=== PATIENT | male | born 1980 | race American Indian/Alaskan Native ===

== ENCOUNTER 2021-05-02 11:42 | Emergency (ER) | payer BC ==
[2021-05-02 11:54] VITALS: BP 121/76
--- NOTE | 2021-05-02 12:59 | Emergency Department Report ---
ED General Adult HPI - General Chief complaint: Urogenital-Male Stated complaint: CHECK UP Time Seen by Provider: 05/02/21 12:57 Source: patient Mode of arrival: Ambulatory Limitations: No Limitations - History of Present Illness Initial comments: 40-year-old male patient presents emergency department with complaints of suprapubic pain for 4 days. No recent fall, trauma, or injury. Pain is sometimes worse with urination. No history of prostate issues. No known STD exposure. No medications prior to arrival. Denies fever, nausea, vomiting, diarrhea, constipation, testicular pain/swelling, penile discharge, hematuria. Denies all other complaints at this time. - Related Data Allergies Allergy/AdvReac Type Severity Reaction Status Date / Time No Known Allergies Allergy Verified 05/02/21 11:54 ED Review of Systems ROS: Stated complaint: CHECK UP Other details as noted in HPI Other: GENERAL: Negative for fever. CARDIOVASCULAR: Negative for chest pain. PULMONARY: Negative for shortness of breath. GASTROINTESTINAL: Positive for pelvic pain. MUSCULOSKELETAL: Negative for back pain. NEUROLOGICAL: Negative for headache. INTEGUMENTARY: Negative for rash. ED Physical Exam - General Limitations: No Limitations - Other Other exam information: General: Awake, appropriately interactive, no acute distress. Neck: Supple. Full range of motion intact. Cardiovascular: Normal peripheral perfusion. Pulmonary: No respiratory distress. Patient is speaking normally without use of accessory muscles. Abdomen: Soft, non-distended. Suprapubic tenderness without guarding, rigidity, or rebound. Pelvic: Male chair trimmer (Jagjit, director of cardiopulmonary services) present. Normal external inspection. No evidence of inguinal hernia. No scrotal edema or tenderness. No testicular asymmetry. No blood or discharge at the urethral meatus. Uncircumcised. No rashes or lesions. No lymphadenopathy. Skin: No apparent rashes or lesions. Neurological: No facial asymmetry. Speech is clear. Follows commands. Patient is alert and oriented. Musculoskeletal: Moves all four extremities spontaneously with normal range of motion. Psych: Cooperative. Appropriate mood and affect. ED Course Vital Signs 05/02/21 05/02/21 11:53 14:40 Temperature 98.7 F Pulse Rate 65 88 Respiratory 16 16 Rate Blood Pressure 121/76 [Left] O2 Sat by Pulse 98 99 Oximetry ED Medical Decision Making - Medical Decision Making Differential diagnosis including but not limited to: hernia, cystitis, sexually transmitted infection, prostatitis, testicular torsion On reevaluation, patient remains stable. Vital signs are within normal limits. He does not appear to be in distress. He is urinating and tolerating PO without difficulty. Testicular exam without evidence of swelling, erythema, asymmetry, or tenderness. No evidence of hernia on examination. Urinalysis is unremarkable. Patient has no concerns for STD exposure. Etiology of patient's pelvic pain remains uncertain however there is no clinical indication for further diagnostic work-up on an emergent basis at this time. Patient will be discharged home with referral to local primary care provider for close outpatient follow-up. Patient expressed understanding and is agreeable to plan of care. Strict return precautions provided. Repeat exam is unremarkable and benign. History, exam, diagnostic testing, and current condition do not suggest worrisome pathology to warrant further testing, continued ED treatment, admission, or surgical evaluation at this point. Given the low probability of a significant medical illness, it would be more likely to result in harm than benefit to perform further testing at this stage. Discussed findings, presumptive diagnosis, need for follow-up and specific signs/symptoms that should prompt immediate return to the emergency department. Instructions were explained in detail to the patient in addition to giving written discharge information. Patient expressed understanding and was given the opportunity to ask questions, all of which were satisfactorily answered prior to discharge home. Critical care attestation.: If time is entered above; I have spent that time in minutes in the direct care of this critically ill patient, excluding procedure time. ED Disposition Clinical Impression: Suprapubic pain Disposition: DC-01 TO HOME OR SELFCARE Is pt being admited?: No Does the pt Need Aspirin: No Condition: Stable Instructions: Pelvic Pain, Male Additional Instructions: Take Tylenol every 4 hours and Motrin every 8 hours as needed for pain. Apply heat to affected area as needed for pain. Follow-up with primary care provider next week. Call today to schedule appointment. See referral information below. Return to the emergency department immediately for new or worsening symptoms. Specifically, return to the emergency department immediately for fever, worsening pain, testicular pain/swelling, vomiting, inability to use the bathroom, blood in urine, or any other concerns. Referrals: ROSALINDA SOW MD [Staff Physician] - 3-[address] [facility] [Outside] - 3-5 Days [facility] [Outside] - 3-5 Days [facility] [Outside] - 3-5 Days [facility] [Provider Group] - 3-5 Days Time of Disposition: 14:18
[2021-05-02 13:54] LABS: Bilirubin,Urine NEG (Negative); Blood,Urine NEG (Negative); Color,Urine Straw (Yellow); Mucus,Urine FEW /HPF; Protein,Urine <15 mg/dL mg/dL (Negative); RBC,Urine < 1.0 /HPF (0.0-6.0); Urobilinogen,Urine < 2.0 mg/dL (<2.0); WBC,Urine < 1.0 /HPF (0.0-6.0)
== END 2021-05-02 14:39 | disposition home or self-care (01) ==
LOC: ED 11:42
DX: R10.2 Pelvic and perineal pain (principal)
CPT/HCPCS: 81001